=== PATIENT | female | born 1990 | race African-American/Black ===

== ENCOUNTER 2016-12-06 21:25 | Emergency (ER) | payer SELFPAY ==
[2016-12-06 21:31] VITALS: BP 122/82; BMI 29.9
--- NOTE | 2016-12-06 21:45 | DR.GENAD ---
HPI - PCP Primary Care Physician: ANDRADE - Complaint/Symptoms Chief Complaint:: I HAVE A BUMP BETWEEN MY VAGINA AND ANUS I FOUND TODAY AROUND 11. ITS PAINFUL AND IT ITCHES. 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 Past Surgical History Comment: TUBALIGATION - Family History History of Family Medical Conditions: No Family Medical History: Diabetes Mellitus, Cancer, [place], Hypertension - Social History Do you use any recreational Drugs:: No Lives Where: Home - infectious screening Have you traveled outside the country in the last 6 months?: No Isolation: Standard ROS - Review of Systems Constitutional: No Symptoms Reported Eyes: No Symptoms Reported ENTM: No Symptoms Reported Respiratoy: No Symptoms Reported Cardiovascular: No Symptoms Reported Gastrointestinal/Abdominal: No Symptoms Reported Genitourinary: No Symptoms Reported Neurological: No Symptoms Reported Musculoskeletal: No Symptoms Reported Integumentary: Lesions (linear lesion in peroneal area. no ulceer or papules) Hematologic/Lymphatic: No Symptoms Reported Endocrine: No Symptoms Reported PE - Vital Signs Vitals: Temperature 98.3 F Pulse Rate 95 Respiratory Rate 16 Blood Pressure [Left Arm] 111/61 Blood Pressure 122/82 O2 Sat by Pulse Oximetry 99 - General Limitations: No Limitations, Language Barrier General Appearance: Alert, In No Apparent Distress - Head Head Exam: Normal Inspection - Eyes Eye exam: Normal Appearance, EOMI. negative: Scleral Icterus, Conjunctival Injection - ENT ENT Exam: Normal Exam, Normal Oropharynx External Ear Exam: Normal External Inspection - Neck Neck Exam: Normal Inspection, Full ROM, Trachea Midline - Respiratory Respiratory Exam: negative: Accessory Muscle Use, Respiratory Distress - Extremities Extremities Exam: Normal Inspection, Full ROM - Back Back Exam: Normal Inspection - Neurologic Neurological Exam: Alert, Oriented X3, CN II-XII Intact - Psychiatric Psychiatric Exam: Normal Mood - Skin Skin Exam: Intact, Normal Color, Other (linear lesion in peroneal area. no ulcer , no papule) - Diagnosis Discharge Problem: Acute hemorrhoid - Discharge Plan Condition: Stable Prescriptions: Hydrocortisone Supp 25 mg [Anucort-Hc Supp] 25 mg AR BID #24 sup - Follow ups/Referrals Follow ups/Referrals: GLADYS ANDRADE [Primary Care Provider] - 3 days - Instructions
== END 2016-12-06 21:55 | disposition home or self-care (01) ==
LOC: ER 21:34
DX: K64.8 Other hemorrhoids (principal)
CPT/HCPCS: 99281; 99282